=== PATIENT | female | born 1995 | race Caucasian/White ===

== ENCOUNTER 2019-09-13 14:51 | Emergency (ER) | payer OTHER ==
[2019-09-13 15:07] VITALS: O2SAT 98
[2019-09-13] MEDS ORDERED: diphenhydrAMINE HCL 50 MG/ML VIAL IV ONE (15:15)
[2019-09-13] MEDS ORDERED: METOCLOPRAMIDE HCL INJ 10 MG/2 ML VIAL IV ONE (15:15)
[2019-09-13] MEDS ORDERED: methylPREDNISolone SODIUM SUC 125 MG/2 ML VIAL IV ONE (15:16)
[2019-09-13] MEDS ORDERED: SODIUM CHLORIDE 0.9% 1000ML 1,000 ML IVS ONE (15:16)
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
--- NOTE | 2019-09-13 16:22 | CT ---
EXAM DESCRIPTION: CT head without contrast. CLINICAL HISTORY: Headaches . COMPARISON: None Available. TECHNIQUE: Contiguous axial sections are obtained as per protocol. Sagittal and coronal reformations are submitted Automatic exposure control (AEC), mA and/or kV adjustment by patient size, and/or iterative reconstructive technique was used, per departmental dose optimization program, during the performance of the CT examination. FINDINGS: Ventricles, sulci and cisterns appear normal. Normal nieto-white matter differentiation is noted. No evidence of intra or extra-axial hemorrhage, hematoma, mass, mass effect or midline shift is noted. The posterior fossa structures appear normal. The bony calvarium appears intact. The soft tissues of the scalp appear unremarkable. Normal appearance of the orbits are noted. The paranasal sinuses and mastoids appear normal. IMPRESSION: Unremarkable non contrast enhanced CT examination of brain. Electronically signed by: Beverly Gleason MD 09/13/2019 4:20 PM CDT
[2019-09-13 17:59] VITALS: BP 127/78; TEMP 98.6
== END 2019-09-13 17:55 | disposition home or self-care (01) ==
LOC: ER 14:51
DX: R51 Headache (principal); H92.03 Otalgia, bilateral; E07.9 Disorder of thyroid, unspecified